=== PATIENT | male | born 2000 ===

== ENCOUNTER 2023-06-11 12:44 | Emergency (ER) | payer SELFPAY ==
[~2023-06-11] VITALS: Ht 154 cm; Wt 56.2 kg
--- NOTE | 2023-06-11 13:03 | ED Lower Extremity ---
General Chief Complaint: Lower Extremity Stated Complaint: RT KNEE PAIN Source: patient Exam Limitations: no limitations History of Present Illness Date Seen by Provider: Jun 11, 2023 Time Seen by Provider: 12:49 Initial Comments 23-year-old male presents emergency department for right lateral knee pain. About a month ago he was running and felt a pop in the area. He has had some mild pain since that time that has persisted. He has been able to bear weight w ithout difficulty. He woke up this morning and noticed the area was swollen. Pain and swelling his right lateral knee just inferior to his kneecap. All other systems reviewed and negative except documented per HPI. Voice recognition software was used to help create this chart Allergies and Home Medications Allergies Coded Allergies: No Known Drug Allergies (Unverified , 06/11/23) Patient Home Medication List Home Medication List Reviewed: Yes Review of Systems Constitutional: see HPI Past Acntavg-Kltven-Facdzb Hx Patient Social History Tobacco Use?: No Use of E-Cig and/or Vaping dev: No Substance use?: No Alcohol Use?: Yes Alcohol Frequency: Once in a while Pt feels they are or have been: No Immunizations Up To Date Influenza Vaccine Up-to-Date: No; Not Current First/Initial COVID19 Vaccinat: x2 Past Medical History Surgery/Hospitalization HX: denies Physical Exam Vital Signs Vital Signs - First Documented 06/11/23 12:53 Temp 36.9 Pulse 81 Resp 18 B/P (MAP) 120/83 (95) Pulse Ox 100 O2 Delivery Room Air Capillary Refill : Height, Weight, BMI Height: '" Weight: lbs. oz. kg; BMI Method: General Appearance: WD/WN, no apparent distress Knees: left knee non-tender, left knee normal inspection, left knee normal range of motion; right knee other (Knee effusion on the right side, mostly laterally. There is point tenderness just inferior lateral to the knee on the right side. Neurovascular and sensory intact. Laxity with anterior drawer slightly. Tenderness valgus stress. Joint overall is stable.) Ankles: bilateral ankle non-tender, bilateral ankle normal inspection, bilateral ankle normal range of motion Feet: bilateral foot non-tender, bilateral foot normal inspection, bilateral foot normal range of motion Neurologic/Tendon: normal sensation, normal motor functions, normal tendon functions Skin: normal color, warm/dry Progress/Results/Core Measures Results/Orders My Orders Orders - TORRI,HARPREET L DO Knee, Right, 3 Views (06/11/23 13:00) Vital Signs/I&O 06/11/23 06/11/23 12:53 13:37 Temp 36.9 36.9 Pulse 81 81 Resp 18 18 B/P (MAP) 120/83 (95) 120/83 Pulse Ox 100 100 O2 Delivery Room Air Room Air Departure Communication (Admissions) X-rays negative. Neurovascular and sensory intact. Likely ligamentous or meniscal injury. Referred to orthopedics and discharged in stable condition. Impression Primary Impression: Right knee pain Qualified Codes: M25.561 - Pain in right knee Disposition: HOME, SELF-CARE Condition: Stable Departure-Patient Inst. Referrals: NO,LOCAL PHYSICIAN (PCP) Primary Care Physician ASHLIE ADAMS MD Patient Instructions: Knee Pain ED Add. Discharge Instructions: You likely have injured a ligament in your knee or meniscus. Your x-rays are negative. Follow-up by calling to schedule appoint with Dr. Adams, an orthopedic surgeon. Return to the emergency department for any severe concerns. Use anti-inflammatory medicine such as Motrin or Aleve as needed for pain. You may use an Saad wrap for compression which may help. All discharge instructions reviewed with patient and/or family. Voiced understanding. HARPREET WILD DO Jun 11, 2023 13:03
[2023-06-11 13:37] VITALS: BP 120/83
--- NOTE | 2023-06-11 13:48 | Diagnostic Imaging Report ---
CLINICAL HISTORY: Running injury. Right knee pain. Pop. COMPARISON: None. TECHNIQUE: 3 views of the right knee. FINDINGS: There is no acute fracture or dislocation of the right knee. Alignment is anatomic. The imaged joint spaces are preserved. No joint effusion is seen in the right knee. No focal osseous lesions are seen. IMPRESSION: 1. No acute fracture or dislocation in the right knee. No joint effusion. Dictated by: Dictated on workstation # [id number]
== END 2023-06-11 13:37 | disposition home or self-care (01) ==
LOC: ER 12:48
DX: M25.561 Pain in right knee (principal); X50.1XXA Overexertion from prolonged static or awkward postures, initial encounter; Y93.02 Activity, running
CPT/HCPCS: 73562